=== PATIENT | female | born 1980 | race Caucasian/White ===

== ENCOUNTER 2016-12-30 23:42 | Emergency (ER) | payer OTHER ==
--- NOTE | ~2016-12-30 | CR169 ---
[facility]. [facility] A Service of [facility] & [facility] RADIOLOGY TEXT RESULTS PATIENT: JULIUS CASTORENA LOCATION: SED : 80 UNIT #: [id number] AGE: [address]: iKrsten Coley SEX: F ORDER DR: [id number] [address] [address] [id number] E MR#: [id number] Acc #: [id number] NAME: JULIUS CASTORENA : 1980 SEX: F STUDY DATE/TIME: 12/31/2016 0:39 UNIT: SED ROOM: STUDY DESCRIPTION: CR Knee 2 Views Lt Attending Physician: Kirsten Coley Pa-C Ordering Physician: Kirsten Coley Pa-C MEDICAL IMAGING REPORT This report is preliminary unless electronic signature is present. EXAM Left knee INDICATION Left knee pain after trauma. Patient stepped in a hole at 10:30 last night. FINDINGS AP and lateral projection of the knee shows smooth articular anatomy without indication of fracture or dislocation at the major weight-bearing surface of the knee. There is no indication of radiopaque foreign body about the knee surface or joint effusion. IMPRESSION Normal knee. Dictated by... Abdias Sauceda M.D. THIS IS AN ELECTRONICALLY VERIFIED REPORT Abdias Sauceda M.D. at 12/31/2016 5:53 AM LORENA/elton TD: 12/31/2016 02:28 JOB #: [id number] MEDICAL IMAGING REPORT Page 1 of 1
== END 2016-12-31 01:33 | disposition home or self-care (01) ==
LOC: SED 23:42
DX: S83.92XA Sprain of unspecified site of left knee, initial encounter (principal); W01.0XXA Fall on same level from slipping, tripping and stumbling without subsequent striking against object, initial encounter; Y92.009 Unspecified place in unspecified non-institutional (private) residence as the place of occurrence of the external cause
CPT/HCPCS: 29505; 73560; 99283

== ENCOUNTER → 2017-01-20 | Outpatient (CLI) | payer OTHER ==
[2017-01-20 14:18] LABS: HEMATOCRIT 38.2 % (35.0-45.0); HEMOGLOBIN 13.1 gm/dL (12.0-16.0); MEAN CELL VOLUME 89.7 FL (83-96); MEAN CORPUSCULAR HEMOGLOBIN 30.7 PG (28-34); MEAN CORPUSCULAR HGB CONC 34.2 g/dL (30-36); MEAN PLATELET VOLUME 8.8 FL (6.5-11.5); RED BLOOD COUNT 4.26 X10e (3.90-5.30); RED CELL DISTRIBUTION WIDTH 13.6 % (11.0-15.5)
[2017-01-20 14:42] LABS: BUN/CREATININE RATIO 11.11; CALCIUM SERUM 8.8 mg/dL (8.4-10.2); CREATININE SERUM 0.9 mg/dL (0.6-1.4); GLOM FILT RATE Estimated 82.3 mL/min (>60); POTASSIUM 4.7 mmol/L (3.5-5.1)
== END | disposition home or self-care (01) ==
LOC: CLAB 13:51
PROVIDERS: Orthopaedic Surgery
DX: Z01.812 Encounter for preprocedural laboratory examination (principal); S83.512A Sprain of anterior cruciate ligament of left knee, initial encounter
CPT/HCPCS: 36415; 80048; 85027